=== PATIENT | female | born 1945 | race Caucasian/White ===

== ENCOUNTER 2020-01-23 06:40 | Observation (INO) | payer OTHER ==
--- NOTE | 2020-01-23 07:24 | PDOC ---
History of Present Illness - General Chief Complaint: Irregular Heart Beat Stated Complaint: IRREGULAR HB, NAUSEA, DIARRHEA Time Seen by Provider: 01/23/20 07:21 - History of Present Illness Initial Comments: 01/23/20 09:10 Chief complaint: Palpitations HPI: Awakened this morning with rapid, irregular, pounding heartbeat which lasted approximately 1 hour. It was accompanied by nausea and diaphoresis. Also to watery stools. No leonel chest pain or shortness of breath. Symptoms are now resolved. Review of systems: As noted above, denies chest pain, shortness of breath, abdominal pain, vomiting, hematemesis, melena, bloody stool, URI symptoms, sore throat, cough, fever/chills, urinary tract symptoms, vaginal bleeding or discharge. Remainder of systems reviewed and, except for as noted above, noncontributory. Past medical history: Similar episodes of palpitations in the past, however only lasting a minute or 2, never evaluated by a medical field representative. Hypothyroidism, GERD, elevated cholesterol. Social history: No tobacco or nonprescription drugs. Occasional social alcohol, none recently. with stable home, and reasonable health. Family history: Patient does not know her family, no known siblings. Physical exam: Alert and oriented, well-developed well-nourished, no acute distress, cheerful and cooperative. Except for mild persistent nausea, other symptoms have resolved. Afebrile, vital signs normal PERRLA 4 mm, fundi benign with sharp disc margins and good central venous pulsations, no hemorrhages or exudates. ENT clear Neck supple without bruit mass or nodes Chest clear, full breath sounds bilaterally, no wheezes rales or rhonchi CV S1-S2 distant without murmur rub or gallop pulses full and symmetric no JVD or edema no bruits 60 and regular Abdomen soft nontender without mass organomegaly. Bowel sounds normal. Extremities no CCE Skin clear, no rash, adequate turgor and wet mucous membranes Neurological C2 to 12 intact. Strength full and symmetric. No focal sensorimotor deficits. Cerebellar function intact. Gait stable and unimpaired Impression: Prolonged episode of rapid, irregular heartbeat, accompanied by nausea and diaphoresis. Rule out ACS, paroxysmal atrial fibrillation. Plan: EKG and enzymes, CBC and chemistries, monitor, admit for monitoring and further cardiology evaluation. Past History - Medical History Allergies/Adverse Reactions: Allergies Allergy/AdvReac Type Severity Reaction Status Date / Time cefoxitin sodium Allergy Severe Hives Verified 09/02/15 12:01 [From Mefoxin] codeine AdvReac Intermediate Nausea Verified 09/02/15 12:01 Home Medications: Ambulatory Orders Cholecalciferol (Vitamin D3) [Vitamin D3] 2,000 unit PO DAILY 08/31/13 Levothyroxine [Synthroid -] 50 mcg PO DAILY 08/31/13 Rosuvastatin Calcium [Crestor] 5 mg PO HS 08/31/13 Ubidecarenone [Co Q-10] 100 mg PO DAILY 08/31/13 Calcium Carbonate [Tums] 200 mg PO DAILY 08/29/15 Omeprazole 20 mg PO DAILY 08/29/15 Anemia: No Asthma: No Cancer: No Cardiac Disorders: No CVA: No COPD: No CHF: No Dementia: No Diabetes: No GI Disorders: Yes (GERD) Disorders: No HTN: No Hypercholesterolemia: Yes Liver Disease: No Seizures: No Thyroid Disease: Yes (HYPOTHYROIDISM) - Surgical History Abdominal Surgery: Yes Appendectomy: No Cardiac Surgery: No Cholecystectomy: No Lung Surgery: No Neurologic Surgery: No Orthopedic Surgery: Yes (RIGHT SHOULDER ARTHROSCOPY 10 YRS. AGO) - Psycho-Social/Smoking History Smoking History: Never smoked Have you smoked in the past 12 months: No Number of Cigarettes Smoked Daily: 0 Cardiac Specific PMH - Complaint Specific PMHX Pacemaker: No *Physical Exam - Vital Signs Last Vital Signs Temp Pulse Resp BP Pulse Ox 97.8 F 61 17 125/71 98 01/23/20 06:43 01/23/20 08:09 01/23/20 08:09 01/23/20 08:09 01/23/20 08:09 ED Treatment Course - LABORATORY CBC & Chemistry Diagram: 01/23/20 07:44 01/23/20 07:44 - ADDITIONAL ORDERS Additional order review: Laboratory Results 01/23/20 01/23/20 07:44 07:44 Sodium 140 Potassium 4.3 Chloride 106 Carbon Dioxide 26 Anion Gap 8 BUN 19.0 H Creatinine 0.7 Est GFR (CKD-EPI)AfAm 98.23 Est GFR (CKD-EPI)NonAf 84.75 Random Glucose 99 Calcium 9.7 Total Bilirubin 1.0 AST 23 ALT 18 Alkaline Phosphatase 60 Creatine Kinase 65 Troponin I < 0.03 Total Protein 6.6 Albumin 3.9 01/23/20 07:44 RBC 4.74 MCV 87.5 MCHC 33.9 RDW 13.6 MPV 9.9 Neutrophils % 64.6 Lymphocytes % 22.8 Monocytes % 8.8 Eosinophils % 2.6 Basophils % 1.2 - RADIOLOGY Radiology Studies Ordered: Category Date Time Status CHEST X-RAY PORTABLE* [RAD] Stat Radiology 01/23/20 07:24 Taken Medical Decision Making - Medical Decision Making 01/23/20 09:16 EKG: Normal sinus rhythm 62/min. Possible left atrial enlargement. Subtle ST-T wave abnormality in the lateral leads, primarily V5 and V6. No old EKG for comparison. Chest x-ray: Clear Labs show no significant abnormalities, including a normal troponin. Spoke to the [facility]ist. To admit for observation. Attending is Dr. Bray Discharge - Discharge Information Problems reviewed: Yes Clinical Impression/Diagnosis: Acute coronary syndrome - Admission Yes - Follow up/Referral Referrals: Joyce Starks MD [Primary Care Provider] - - Patient Discharge Instructions - Post Discharge Activity
[2020-01-23 08:18] LABS: BASO % 1.2 % (0-2.0); EOS % 2.6 % (0-4.5); HEMATOCRIT 41.5 % (32.4-45.2); HEMOGLOBIN 14.1 GM/dl (10.7-15.3); LYMPH % 22.8 % (8-40); MCH 29.6 pg (25.7-33.7); MCHC 33.9 g/dl (32.0-36.0); MEAN CELL VOLUME 87.5 fl (80-96); MEAN PLT VOLUME 9.9 fl (7.5-11.1); MONO % 8.8 % (3.8-10.2); NEUT % 64.6 % (42.8-82.8); PLATELET COUNT 204 K/MM3 (134-434); RBC 4.74 M/mm3 (3.60-5.2); RDW 13.6 % (11.6-15.6)
[2020-01-23 08:27] LABS: ALBUMIN 3.9 g/dl (3.4-5.0); CALCIUM 9.7 mg/dl (8.5-10); CREATININE 0.7 mg/dl (0.55-1.3); POTASSIUM 4.3 mmol/L (3.5-5.1); TOT PROT 6.6 g/dl (6.4-8.2)
[2020-01-23] MEDS ORDERED: ASPIRIN 81 MG CHEWABLE TABLETS PO ONE (09:05)
[2020-01-23] MEDS ORDERED: ASPIRIN 81 MG CHEWABLE TABLETS ONE (09:44)
[2020-01-23] MEDS ORDERED: LEVOTHYROXINE NA 50 MCG TABLET (FP) PO SCH (10:15)
[2020-01-23 10:49] VITALS: BP 144/71; PULSE 51; TEMP 97.5; BMI 24.2
--- NOTE | 2020-01-23 11:14 | HP ---
CHIEF COMPLAINT: Palpitations PCP: Joyce Starks HISTORY OF PRESENT ILLNESS: This is a 74 year old female with primary history significant for hypothyroidism, GERD and HDL, who presents to ER for evaluation of palpitations,reports rapid irregular heartbeat. Pt reports that she was awakened this morning with rapid, irregular, pounding heartbeat which lasted approximately 1 hour. It was associated with nausea and diaphoresis, also reports watery stools. no hematochezia or melena. Symptoms are now resolved in ER. Denies cp,sob,abdominal pain,fever, chills,cough,CARRILLO,dizziness or urinary symptoms. Denies any known exposure to Covid. ER course was notable for: (1) EKG: SR with nonspecific ST changes (2) Trop neg (3) CXR: No acute pathology Recent Travel:No PAST MEDICAL HISTORY: As mentioned above PAST SURGICAL HISTORY: Hysterectomy Bilateral shoulder rotated cuff sx Rt meniscus sx Bunion sx Social History: Smoking:No Alcohol:No Drugs:No Allergies cefoxitin sodium [From Mefoxin] Allergy (Severe, Verified 09/02/15 12:01) Hives codeine Adverse Reaction (Intermediate, Verified 09/02/15 12:01) Nausea HOME MEDICATIONS: Home Medications Medication Instructions Recorded Cholecalciferol (Vitamin D3) 2,000 unit PO DAILY 08/31/13 [Vitamin D3] Levothyroxine [Synthroid -] 50 mcg PO DAILY 08/31/13 Rosuvastatin Calcium [Crestor] 5 mg PO HS 08/31/13 Ubidecarenone [Co Q-10] 100 mg PO DAILY 08/31/13 Calcium Carbonate [Tums] 200 mg PO DAILY 08/29/15 Omeprazole 10 mg PO DAILY 08/29/15 REVIEW OF SYSTEMS CONSTITUTIONAL: Absent: fever, chills, diaphoresis, generalized weakness, malaise, loss of appetite, weight change HEENT: Absent: rhinorrhea, nasal congestion, throat pain, throat swelling, difficulty swallowing, mouth swelling, ear pain, eye pain, visual changes CARDIOVASCULAR: Absent: chest pain, syncope, palpitations, irregular heart rate, lightheadedness, peripheral edema RESPIRATORY: Absent: cough, shortness of breath, dyspnea with exertion, orthopnea, wheezing, stridor, hemoptysis GASTROINTESTINAL: Absent: abdominal pain, abdominal distension, nausea, vomiting, diarrhea, co nstipation, melena, hematochezia GENITOURINARY: Absent: dysuria, frequency, urgency, hesitancy, hematuria, flank pain, genital pain MUSCULOSKELETAL: Absent: myalgia, arthralgia, joint swelling, back pain, neck pain SKIN: Absent: rash, itching, pallor HEMATOLOGIC/IMMUNOLOGIC: Absent: easy bleeding, easy bruising, lymphadenopathy, frequent infections ENDOCRINE: Absent: unexplained weight gain, unexplained weight loss, heat intolerance, cold intolerance NEUROLOGIC: Absent: headache, focal weakness or paresthesias, dizziness, unsteady gait, seizure, mental status changes, bladder or bowel incontinence PSYCHIATRIC: Absent: anxiety, depression, suicidal or homicidal ideation, hallucinations. PHYSICAL EXAMINATION Vital Signs - 24 hr 01/23/20 01/23/20 01/23/20 06:43 08:09 09:08 Temperature 97.8 F 97.8 F Pulse Rate 82 Pulse Rate [ 61 55 L Left] Respiratory 16 17 17 Rate Blood Pressure 123/82 Blood Pressure 125/71 137/71 [Right Arm] O2 Sat by Pulse 98 98 100 Oximetry (%) GENERAL: Awake, alert, and fully oriented, in no acute distress. HEAD: Normal with no signs of trauma. EYES: Pupils equal, round and reactive to light, extraocular movements intact, sclera anicteric, conjunctiva clear. No lid lag. EARS, NOSE, THROAT: Ears normal, nares patent, oropharynx clear without exudates. Moist mucous membranes. NECK: Normal range of motion, supple without lymphadenopathy, JVD, or masses. LUNGS: Breath sounds equal, clear to auscultation bilaterally. No wheezes, and no crackles. No accessory muscle use. HEART: Regular rate and rhythm, normal S1 and S2 without murmur, rub or gallop. ABDOMEN: Soft, nontender, not distended, normoactive bowel sounds, no guarding, no rebound, no masses. No hepatomegaly or splenomegaly. MUSCULOSKELETAL: Normal range of motion at all joints. No bony deformities or tenderness. No CVA tenderness. UPPER EXTREMITIES: 2+ pulses, warm, well-perfused. No cyanosis. No clubbing. No peripheral edema. LOWER EXTREMITIES: 2+ pulses, warm, well-perfused. No calf tenderness. No peripheral edema. NEUROLOGICAL: Cranial nerves II-XII intact. Normal speech. Normal gait. PSYCHIATRIC: Cooperative. Good eye contact. Appropriate mood and affect. SKIN: Warm, dry, normal turgor, no rashes or lesions noted, normal capillary refill. Laboratory Results - last 24 hr 01/23/20 01/23/20 01/23/20 07:44 07:44 07:44 WBC 6.0 RBC 4.74 Hgb 14.1 Hct 41.5 MCV 87.5 MCH 29.6 MCHC 33.9 RDW 13.6 Plt Count 204 MPV 9.9 Absolute Neuts (auto) 3.8 Neutrophils % 64.6 Lymphocytes % 22.8 Monocytes % 8.8 Eosinophils % 2.6 Basophils % 1.2 Sodium 140 Potassium 4.3 Chloride 106 Carbon Dioxide 26 Anion Gap 8 BUN 19.0 H Creatinine 0.7 Est GFR (CKD-EPI)AfAm 98.23 Est GFR (CKD-EPI)NonAf 84.75 Random Glucose 99 Calcium 9.7 Total Bilirubin 1.0 AST 23 ALT 18 Alkaline Phosphatase 60 Creatine Kinase 65 Troponin I < 0.03 Total Protein 6.6 Albumin 3.9 ASSESSMENT/PLAN: 74 year old female with primary history significant for hypothyroidism, GERD and HDL, who presents to ER for evaluation of palpitations. * Palpitations - EKG: SR - will check Trop - tele monitoring - will check TSH - cardiology consult requested * GERD - On PPI * Hypothyroidism - Synthroid * HDL - will cont on Crestor * VTE: Lovenix Family Medical History Family History: Unable to Obtain (unknown ( adopted)) Visit type - Emergency Visit Emergency Visit: Yes ED Registration Date: 01/23/20 Care time: The patient presented to the Emergency Department on the above date and was hospitalized for further evaluation of their emergent condition. - New Patient This patient is new to me today: Yes Date on this admission: 01/23/20 - Critical Care Critical Care patient: No
--- NOTE | 2020-01-23 12:17 | EKG ---
Test Reason : Blood Pressure : / mmHG Vent. Rate : 062 BPM Atrial Rate : 062 BPM P-R Int : 176 ms QRS Dur : 084 ms QT Int : 408 ms P-R-T Axes : 054 020 051 degrees QTc Int : 414 ms NORMAL SINUS RHYTHM POSSIBLE LEFT ATRIAL ENLARGEMENT NONSPECIFIC ST ABNORMALITY ABNORMAL ECG NO PREVIOUS ECGS AVAILABLE Confirmed by JOSÉ MIGUEL DURÁN, AMANUEL ([id number]) on 01/23/2020 12:16:45 PM Referred By: MD MENDEZ Confirmed By:AMANUEL VALDEZ MD
--- NOTE | 2020-01-23 12:19 | CON.CARD ---
Consult Consult Specialty:: Cardiology Referred by:: Hospitalist Reason for Consultation:: Cardiac evaluation - History of Present Illness Chief Complaint: Palpitations History of Present Illness: Patient is a 74 year old female with no significant PMH except for hypothyroidisma and hypercholesterolemia, has complained palpitations intermittently for many years presents with complaints of persistent palpitations. She measured her pulse to be in the 90's. Upon admission to the hospital ECG was found to be sinus rhythm with nonspecific ST. She denies chest pain, shortness of breath or palpitations. She denies paroxysmal nocturnal dyspnea or orthopnea. She denies fever or chills. She denies nausea, vomiting, diarrhea or abdominal pain. She denies headache or lightheadedness. - History Source History Provided By: Patient, Medical Record Limitations to Obtaining History: No Limitations - Past Surgical History Past Surgical History: Yes: None - Alcohol/Substance Use Hx Alcohol Use: Yes - Smoking History Smoking history: Never smoked Have you smoked in the past 12 months: No Aproximately how many cigarettes per day: 0 Home Medications - Allergies Allergies/Adverse Reactions: Allergies Allergy/AdvReac Type Severity Reaction Status Date / Time cefoxitin sodium Allergy Severe Hives Verified 09/02/15 12:01 [From Mefoxin] codeine AdvReac Intermediate Nausea Verified 09/02/15 12:01 - Home Medications Home Medications: Ambulatory Orders Cholecalciferol (Vitamin D3) [Vitamin D3] 2,000 unit PO DAILY 08/31/13 Levothyroxine [Synthroid -] 50 mcg PO DAILY 08/31/13 Rosuvastatin Calcium [Crestor] 5 mg PO HS 08/31/13 Ubidecarenone [Co Q-10] 100 mg PO DAILY 08/31/13 Calcium Carbonate [Tums] 200 mg PO DAILY 08/29/15 Omeprazole 20 mg PO DAILY 08/29/15 Family Medical History Family History: Denies Review of Systems - Review of Systems Constitutional: denies: Chills, Fever Cardiovascular: reports: Palpitations. denies: Chest Pain, Shortness of Breath Respiratory: denies: Cough, Hemoptysis, Orthopnea, PND, SOB, SOB on Exertion, Wheezing Gastrointestinal: denies: Abdominal Pain, Constipation, Diarrhea, Melena, Nausea, Rectal Bleeding, Vomiting Genitourinary: denies: Dysuria, Hematuria Musculoskeletal: denies: Back Pain, Joint Pain Neurological: denies: Dizziness, Headache, Seizure, Syncope Vital Signs: Vital Signs Temperature 97.5 F L 01/23/20 10:16 Pulse Rate 51 L 01/23/20 10:16 Respiratory Rate 17 01/23/20 10:16 Blood Pressure 144/71 01/23/20 10:16 O2 Sat by Pulse Oximetry (%) 100 01/23/20 10:16 Neck: Yes: Supple Respiratory: Yes: CTA Bilaterally Gastrointestinal: Yes: Normal Bowel Sounds, Soft. No: Tenderness Cardiovascular: Yes: Regular Rate and Rhythm JVD: No Carotid Bruit: No PMI: Non-Displaced Heart Sounds: Yes: S1, S2 Murmur: No: Systolic Murmur, Diastolic Murmur Edema: No - Other Data Labs, Other Data: CBC, BMP 01/23/20 07:44 01/23/20 07:44 Troponin, BNP 01/23/20 07:44 Troponin I < 0.03 Laboratory Results - last 24 hr 01/23/20 01/23/20 01/23/20 07:44 07:44 07:44 WBC 6.0 RBC 4.74 Hgb 14.1 Hct 41.5 MCV 87.5 MCH 29.6 MCHC 33.9 RDW 13.6 Plt Count 204 MPV 9.9 Absolute Neuts (auto) 3.8 Neutrophils % 64.6 Lymphocytes % 22.8 Monocytes % 8.8 Eosinophils % 2.6 Basophils % 1.2 Sodium 140 Potassium 4.3 Chloride 106 Carbon Dioxide 26 Anion Gap 8 BUN 19.0 H Creatinine 0.7 Est GFR (CKD-EPI)AfAm 98.23 Est GFR (CKD-EPI)NonAf 84.75 Random Glucose 99 Calcium 9.7 Total Bilirubin 1.0 AST 23 ALT 18 Alkaline Phosphatase 60 Creatine Kinase 65 Troponin I < 0.03 Total Protein 6.6 Albumin 3.9 Sinus rhythm with nonspecific ST Imaging - Results Chest X-ray: Report Reviewed (Unremarkable) EKG: Report Reviewed Problem List - Problems (1) Palpitation Code(s): R00.2 - PALPITATIONS (2) Hypercholesterolemia Code(s): E78.00 - PURE HYPERCHOLESTEROLEMIA, UNSPECIFIED (3) Hypothyroidism Code(s): E03.9 - HYPOTHYROIDISM, UNSPECIFIED Assessment/Plan 1. Palpitations, etiology to be determined 2. Hypothyroidism 3. Hypercholesterolemia PLAN: 1. Initial troponin drawn negative. If second set negative at 2 pm, patient may be discharged home 2. Further evaluation can be done as outpatient. Echocardiography to assess LV/RV and valvular function can be done as outpatient. Extended heart monitoring was recommended as outpatient 3. No need for cardiac medication at this time until etiology is determined. Possible beta lexi therapy may be needed 4. [phone] Rafiq Oh MD
--- NOTE | 2020-01-23 12:39 | DS ---
Physical Exam: SUBJECTIVE: Patient seen and examined at bedside, denies cp, sob or palpitations. OBJECTIVE: Vital Signs Period Temp Pulse Resp BP Sys/Wagner Pulse Ox Last 24 Hr 97.5 F-97.8 F 51-82 16-17 123-144/71-82 98-100 PHYSICAL EXAM GENERAL: The patient is awake, alert, and fully oriented, in no acute distress. HEAD: Normal with no signs of trauma. EYES: PERRL, extraocular movements intact, sclera anicteric, conjunctiva clear. ENT: Ears normal, nares patent, oropharynx clear without exudates, moist mucous membranes. NECK: Trachea midline, full range of motion, supple. LUNGS: Breath sounds equal, clear to auscultation bilaterally, no wheezes, no crackles, no accessory muscle use. HEART: Regular rate and rhythm, S1, S2 without murmur, rub or gallop. ABDOMEN: Soft, nontender, nondistended, normoactive bowel sounds, no guarding, no rebound, no hepatosplenomegaly, no masses. EXTREMITIES: 2+ pulses, warm, well-perfused, no edema. NEUROLOGICAL: Cranial nerves II through XII grossly intact. Normal speech, gait not observed. PSYCH: Normal mood, normal affect. SKIN: Warm, dry, normal turgor, no rashes or lesions noted. LABS Laboratory Results - last 24 hr 01/23/20 01/23/20 01/23/20 07:44 07:44 07:44 WBC 6.0 RBC 4.74 Hgb 14.1 Hct 41.5 MCV 87.5 MCH 29.6 MCHC 33.9 RDW 13.6 Plt Count 204 MPV 9.9 Absolute Neuts (auto) 3.8 Neutrophils % 64.6 Lymphocytes % 22.8 Monocytes % 8.8 Eosinophils % 2.6 Basophils % 1.2 Sodium 140 Potassium 4.3 Chloride 106 Carbon Dioxide 26 Anion Gap 8 BUN 19.0 H Creatinine 0.7 Est GFR (CKD-EPI)AfAm 98.23 Est GFR (CKD-EPI)NonAf 84.75 Random Glucose 99 Calcium 9.7 Total Bilirubin 1.0 AST 23 ALT 18 Alkaline Phosphatase 60 Creatine Kinase 65 Troponin I < 0.03 Total Protein 6.6 Albumin 3.9 HOSPITAL COURSE: Date of Admission:01/23/20 Date of Discharge: 01/23/20 This is a 74 year old female with primary history significant for hypothyroidism, GERD and HDL, who presents to ER for evaluation of palpitations,reports rapid irregular heartbeat. * Palpitations - EKG:SR with nonspecific ST changes - Trop neg x2 - tele monitoring- no cardiac events -TSH wnl - cardiology consult appreciated, rec out cardiology followup and Electrocardiogram * GERD - will cont on PPI * Hypothyroidism -will cont on Synthroid * HDL - will cont on Crestor Minutes to complete discharge: 35 Discharge Summary Problems reviewed: Yes Reason For Visit: IRREGULAR HB, NAUSEA, DIARRHEA Current Active Problems Acute coronary syndrome (Acute) Condition: Good - Instructions Referrals: Joyce Starks MD [Primary Care Provider] - Rafiq Oh MD [Staff Physician] - 1 Week ( [facility] [phone] ) - Home Medications Comprehensive Discharge Medication List: Ambulatory Orders Cholecalciferol (Vitamin D3) [Vitamin D3] 2,000 unit PO DAILY 08/31/13 Levothyroxine [Synthroid -] 50 mcg PO DAILY 08/31/13 Rosuvastatin Calcium [Crestor] 5 mg PO HS 08/31/13 Ubidecarenone [Co Q-10] 100 mg PO DAILY 08/31/13 Calcium Carbonate [Tums] 200 mg PO DAILY 08/29/15 Omeprazole 20 mg PO DAILY 08/29/15 This patient is new to me today: Yes Date on this admission: 01/23/20 Emergency Visit: Yes ED Registration Date: 01/23/20 Care time: The patient presented to the Emergency Department on the above date and was hospitalized for further evaluation of their emergent condition. Critical Care patient: No - Discharge Referral Referred to [facility] No
[2020-01-23] MEDS ORDERED: ROSUVASTATIN CA 5 MG TABLET (FP) PO SCH (22:00)
[2020-01-24] MEDS ORDERED: PANTOPRAZOLE 20 MG TABLET PO SCH (10:00)
[2020-01-24] MEDS ORDERED: CHOLECALCIFEROL (VIT D3) 1,000 UNIT (25 MCG) TABLET PO SCH (10:00)
== END 2020-01-23 14:16 | disposition home or self-care (01) ==
LOC: FER 06:40 → SUPCPDRO 06:40 → FM/S 09:33 → INTOOBSV 09:33
PROVIDERS: ADMIT Internal Medicine; ATTEND Nurse Practitioner Family
DX: I24.9 Acute ischemic heart disease, unspecified (principal); R00.2 Palpitations; E78.00 Pure hypercholesterolemia, unspecified; E03.9 Hypothyroidism, unspecified; Z88.8 Allergy status to other drugs, medicaments and biological substances; Z88.6 Allergy status to analgesic agent; K21.9 Gastro-esophageal reflux disease without esophagitis
CPT/HCPCS: 36415; 71045-TC-FY; 80053; 82550; 84443; 84484; 85025; 93005; 99285-25; G0378; U0003